=== PATIENT | male | born 1995 | race Two or more races ===

== ENCOUNTER 2019-09-09 08:57 | Emergency (ER) | payer SELFPAY ==
[~2019-09-09] VITALS: Ht 180.3 cm; Wt 63.5 kg
[2019-09-09 09:57] VITALS: BP 123/97
[2019-09-09] MEDS ORDERED: cefTRIAXone SOD 1,000 MG VL IM ONE (11:00)
== END 2019-09-09 11:32 | disposition home or self-care (01) ==
LOC: ER 08:57
DX: S62.635B Displaced fracture of distal phalanx of left ring finger, initial encounter for open fracture (principal); Y04.0XXA Assault by unarmed brawl or fight, initial encounter; Y93.89 Activity, other specified; Y92.89 Other specified places as the place of occurrence of the external cause; Y99.8 Other external cause status
CPT/HCPCS: 12001; 73140; 96372; 99283; J0696

== ENCOUNTER 2019-09-20 10:03 | Emergency (ER) | payer MEDICAID ==
[~2019-09-20] VITALS: Ht 170.2 cm; Wt 63.5 kg
[2019-09-20 10:13] VITALS: BP 125/97
== END 2019-09-20 10:48 | disposition home or self-care (01) ==
LOC: ER 10:03
DX: S61.411D Laceration without foreign body of right hand, subsequent encounter (principal); X58.XXXD Exposure to other specified factors, subsequent encounter